=== PATIENT | male | born 1935 | race Caucasian/White ===

== ENCOUNTER 2016-08-01 11:35 | Inpatient (IN) | payer MEDICAID, MEDICARE ==
[2016-08-01 12:38] LABS: Eosinophils % (Auto) 0.9 % (0.0-4.3); Hematocrit 45.1 % (35.5-45.6); Mean Corpuscular HGB Conc 33 % (32-34); Mean Corpuscular Hemoglobin 30 pg (28-32); Mean Corpuscular Volume 89 fl (84-94); Platelet Count 211 K/mm3 (140-440); Red Blood Count 5.08 M/mm3 (3.65-5.03); Red Cell Distribution Width 14.6 % (13.2-15.2); White Blood Count 5.8 K/mm3 (4.5-11.0)
--- NOTE | 2016-08-01 12:48 | Emergency Department Report ---
ED Syncope HPI - General Chief Complaint: Syncope Stated Complaint: WEAKNESS Time Seen by Provider: 08/01/16 12:26 Source: family, RN notes reviewed Exam Limitations: language barrier - History of Present Illness Initial Comments: 81-year-old male presents to the emergency department via EMS after a witnessed syncopal episode at urgent care. History is obtained from a family member due to a language barrier. Per report, the patient was at urgent care for a routine follow-up. Family reports that the patient's blood pressure has been up and down over the past several days. EMS reports that the patient had a syncopal episode that was witnessed by the urgent care doctor. Family reports that at this time, the patient has no complaints. Family states that the patient has been feeling weak over the past several days. There are no other complaints. Timing/Prior Episodes: single episode today Precipitating Factors: Positive: unknown Context: sitting Loss of Consciousness: brief (seconds) Current Symptoms: back to normal, weakness - Related Data Allergies/Adverse Reactions: Allergies No Known Allergies Allergy (Unverified 08/01/16 12:06) Home Medications: Ambulatory Orders Aspirin EC [Aspirin Enteric Coated TAB] 81 mg PO QDAY 08/01/16 Fluticasone [Flonase] 1 spray NS QDAY 08/01/16 Lisinopril [Zestril TAB] 10 mg PO QDAY 08/01/16 Tamsulosin [Flomax] 0.4 mg PO QDAY 08/01/16 traMADol [Ultram 50 MG tab] 50 mg PO TID PRN 08/01/16 ED Review of Systems ROS: Stated complaint: WEAKNESS Other details as noted in HPI Comment: All other systems reviewed and negative Constitutional: weakness Cardiovascular: syncope ED Past Medical Hx - Past Medical History Previous Medical History?: Yes Hx Hypertension: Yes Additional medical history: Enlarged prostate - Surgical History Past Surgical History?: No - Family History Family history: no significant - Social History Smoking Status: Unknown if ever smoked - Medications Home Medications: Home Medications Medication Instructions Recorded Confirmed Last Taken Type Aspirin EC [Aspirin Enteric Coated 81 mg PO QDAY 08/01/16 08/01/16 Unknown History TAB] Fluticasone [Flonase] 1 spray NS QDAY 08/01/16 08/01/16 Unknown History Lisinopril [Zestril TAB] 10 mg PO QDAY 08/01/16 08/01/16 Unknown History Tamsulosin [Flomax] 0.4 mg PO QDAY 08/01/16 08/01/16 Unknown History traMADol [Ultram 50 MG tab] 50 mg PO TID PRN 08/01/16 08/01/16 Unknown History ED Physical Exam - General Limitations: Language Barrier General appearance: alert, in no apparent distress - Head Head exam: Present: atraumatic, normocephalic - Eye Eye exam: Present: normal appearance, PERRL, EOMI - ENT ENT exam: Present: normal exam, normal orophraynx, mucous membranes moist - Neck Neck exam: Present: normal inspection, full ROM. Absent: tenderness - Respiratory Respiratory exam: Present: normal lung sounds bilaterally. Absent: respiratory distress - Cardiovascular Cardiovascular Exam: Present: normal rhythm, bradycardia, normal heart sounds - GI/Abdominal GI/Abdominal exam: Present: soft, normal bowel sounds. Absent: distended, tenderness - Extremities Exam Extremities exam: Present: normal inspection, full ROM. Absent: tenderness - Back Exam Back exam: Present: normal inspection, full ROM. Absent: tenderness - Neurological Exam Neurological exam: Present: alert, oriented X3. Absent: motor sensory deficit - Skin Skin exam: Present: warm, dry, intact ED Course Vital Signs 08/01/16 11:40 Temperature 96.5 F L Pulse Rate 46 L Respiratory 16 Rate Blood Pressure 107/88 Blood Pressure 107/88 [Left] O2 Sat by Pulse 96 Oximetry ED Medical Decision Making - Lab Data Result diagrams: 08/01/16 12:15 08/01/16 12:15 - EKG Data -: EKG Interpreted by Me EKG shows normal: sinus rhythm, axis, intervals, QRS complexes, ST-T waves Rate: bradycardia - EKG Data When compared to previous EKG there are: previous EKG unavailable Interpretation: normal EKG - Medical Decision Making Laboratory results reviewed and discussed with the family at bedside. Hyponatremia and hypo-chloremia noted. Giving IV fluids. Patient is to be admitted by the hospitalist. - Differential Diagnosis syncope, hypotension, arrhythmia Critical care attestation.: If time is entered above; I have spent that time in minutes in the direct care of this critically ill patient, excluding procedure time. ED Disposition Clinical Impression: Syncope and collapse, Hyponatremia Disposition: OP ADMITTED IP TO THIS HOSP Is pt being admited?: Yes Condition: Stable Instructions: Syncope (ED) Referrals: PRIMARY CARE, [Primary Care Provider] - 3-5 Days Time of Disposition: 13:03
[2016-08-01 12:53] LABS: Alanine Aminotransferase 13 units/L (7-56); Albumin 3.5 g/dL (3.9-5); Albumin/Globulin Ratio 1.2 %; Alkaline Phosphatase 92 units/L (35-129); Anion Gap 15 mmol/L; BUN/Creatinine Ratio 21.66; Blood Urea Nitrogen 13 mg/dL (9-20); Calcium 8.5 mg/dL (8.4-10.2); Carbon Dioxide 24 mmol/L (22-30); Chloride 89.4 mmol/L (98-107); Glucose 120 mg/dL (75-100); Potassium 4.3 mmol/L (3.6-5.0); Sodium 124 mmol/L (137-145); Total Protein 6.4 g/dL (6.3-8.2)
--- NOTE | 2016-08-01 12:58 | Admit Criteria Form ---
Admission Criteria Documentation: SYNCOPE Clinical Indications for Admission to Inpatient Care ( Place 'X' for any and all applicable criteria): Admission is indicated for syncope and ANY ONE of the following (1)(2)(3)(4)(5) (6)(7) : [X ]I. Inpatient admission required rather than observation care (Also use Syncope: Observation Care Criteria as appropriate) because of ANY ONE of the following: [ ]a) Hemodynamic instability that is severe or persistent [ ]b) Cardiac arrhythmias of immediate concern identified or strongly suspected (eg, needs electrophysiologic study) [ ]c) Acute coronary syndrome identified (Also use Myocardial Infarction or Angina Criteria form ) [ ]d) Structural cardiac disorder (eg, aortic stenosis) suspected as cause that requires immediate correction [ ]e) Respiratory symptoms (eg, dyspnea, tachypnea) that are severe or persistent [ ]f) Neurologic signs or symptoms that are severe or persistent ( eg, stroke, seizures, altered mental status) [X ]g) Severe electrolyte abnormalities requiring inpatient care [ ]h) Supplemental oxygen or respiratory treatment for over 24 hrs that are performable only in acute inpatient setting [ ]i) IV fluid to replace significant ongoing (eg, for over 24 hrs ) losses (>3 L/m2 per day) [ ]j) Continuous intravenous infusion of anticoagulation, platelet inhibitor, vasoactive, or antiarrhythmic medication(15)(16) [ ]k) Pulmonary artery catheter monitoring [ ]l) Temporary pacemaker placement(17) [ ]m) Emergent cardioversion(18) [ ]n) Other conditions, treatment or monitoring requiring inpatient admission [ ]II. Suspicion of imminently dangerous cause (eg, rare causes like pericardial tamponade, pulmonary embolism) [ ]III. Syncope causing severe injury requiring hospitalization Extended stay beyond goal length of stay may be needed for(28) [ ]a) Dangerous arrhythmia(15)(23)(27)(29) [ ]b) Myocardial ischemia [ ]c) Seizure disorder [ ]d) Syncope-related injuries The original [employer] content created by [employer] has been revised. The portions of the content which have been revised are identified through the use of italic text or in bold, and [employer] has neither reviewed nor approved the modified material. All other unmodified content is copyright [employer]. Please see references footnoted in the original [facility] edition 2016 Admission Criteria Met: Yes
[2016-08-01] MEDS: NACL 0.9% 1000 ML 1,000 ML IV SCH (14:00)
[2016-08-01 14:27] LABS: Bilirubin,Urine NEG (Negative); Blood,Urine NEG (Negative); Ketones,Urine NEG (Negative); Leukocyte Esterase,Urine NEG (Negative); Mucus,Urine FEW /HPF; Nitrite,Urine NEG (Negative); Protein,Urine <15 mg/dL mg/dL (Negative); Urobilinogen,Urine < 2.0 mg/dL (<2.0)
--- NOTE | 2016-08-01 23:42 | Event Note ---
Date: 08/01/16 See H/p in reports Syncope and collapse Hyponatremia HTN BPH Bradycardia
[2016-08-02] MEDS ORDERED: ULTRAM PO PRN (01:31)
[2016-08-02] MEDS ORDERED: NITROSTAT SL PRN (01:31)
[2016-08-02] MEDS ORDERED: SODIUM CHLORIDE FLUSH SYRINGE 10 ML IV PRN (01:31)
[2016-08-02] MEDS: NACL 0.9% 1000 ML 1,000 ML IV SCH (01:57)
[2016-08-02 02:47] LABS: Creatine Kinase 39 units/L (55-170)
[2016-08-02] MEDS ORDERED: LEXISCAN IV ONE ×2 (09:40→09:46)
[2016-08-02] MEDS ORDERED: NACL 3% 500 ML IV ONE (10:00)
--- NOTE | 2016-08-02 10:50 | Cat Scan Report ---
CT scan of the contrast: History: Syncope. Findings: Ventricles are normal in size and midline in location. Evidence of cortical atrophy. No acute ischemia, hemorrhage or mass. No extra-axial fluid collection. Normal brainstem and cerebellum. Normal sinuses and mastoid air cells. Impression: Cortical atrophy. No acute intracranial abnormality.
--- NOTE | 2016-08-02 11:27 | History and Physical Report ---
CHIEF COMPLAINT: Passed out at urgent care. HISTORY OF PRESENT ILLNESS: An 81-year-old [place] male went to urgent care for a followup. His blood pressure was up and down over the past several weeks and he was being evaluated. The patient has passed out, as witnessed by the urgent care doctor and was sent here. No complaints. No chest pain. No diaphoresis. No focal deficits. The patient is back to normal. PAST MEDICAL HISTORY: Significant for hypertension, benign prostatic hypertrophy, and chronic pain. CURRENT MEDICATIONS: Aspirin 81 mg daily, Flonase 1 spray daily, lisinopril 10 mg p.o. daily, Flomax 0.4 mg p.o. daily, tramadol, Ultram 50 mg p.o. t.i.d. PAST SURGICAL HISTORY: None. FAMILY HISTORY: No significant family history. SOCIAL HISTORY: He does not smoke. No alcohol. No recreational drugs. REVIEW OF SYSTEMS: CONSTITUTIONAL: No weight loss. No weight gain. No fever. No chills. HEENT: No sore throat. No postnasal drip. No diplopia. No blurred vision. NECK: No neck pain. CARDIOVASCULAR: No chest pain. No palpitations. No diaphoresis. RESPIRATORY: No cough. No wheezing. GASTROINTESTINAL: No nausea. No vomiting. No diarrhea. GENITOURINARY: No dysuria. No flank pain. MUSCULOSKELETAL: No joint pains. No muscle pains. CENTRAL NERVOUS: Had syncopal episode first time. NEUROLOGIC: No focal deficits. SKIN: No rashes. A 14-point review of systems was done. PHYSICAL EXAMINATION: GENERAL: On examination, elderly male, cooperative during examination. VITAL SIGNS: Blood pressure is 133/50, not orthostatic, temperature is 98.2, pulse is 75, sats are 99, respiratory rate is 18. HEENT: Unremarkable. Pupils equal and reactive. NECK: Supple. No lymphadenopathy. No thyromegaly. CHEST: Clear to auscultation and percussion. Good air entry. CARDIOVASCULAR: S1, S2 heard. No gallop. No murmur. No rub. Apical impulse in left fifth intercostal space and midclavicular line. ABDOMEN: Soft and benign. No hepatosplenomegaly. No guarding. No rigidity. Hernial orifices are normal. EXTREMITIES: Good pedal pulses. No pedal edema. CENTRAL NERVOUS SYSTEM: Alert and oriented x 4. Nonfocal exam. SKIN: Normal. LABORATORY DATA: Significant for sodium of 124, BUN and creatinine of 13 and 0.6. Hemoglobin is 15, hematocrit is 45. Cardiac enzymes are negative. Albumin is 3.5, slightly low. Urine was negative. DIAGNOSTIC DATA: EKG shows sinus rhythm, normal axis, normal intervals. Normal QRS complexes, ST-T wave changes. Heart rate consistent with bradycardia, heart rate of 155. ASSESSMENT AND PLAN: 1. Syncope and collapse. Syncope workup. Probably hyponatremia may have contributed to his syncopal episode. We will correct the hyponatremia. The patient is not on diuretics. We will check urine lytes. Also 3% saline for 500 mL and recheck the sodium, hyponatremia, 3% saline 500 mL x 1. Check urine lytes. 2. Hypertension. Continue lisinopril. 3. Benign prostate hypertrophy. Continue Flomax. Flomax may be responsible for his syncope. 4. Chronic pain. Continue tramadol. 5. Deep venous thrombosis prophylaxis, Lovenox 40 mg subcutaneous daily. JOB# [id number] VSM/NTS
[2016-08-02] MEDS ORDERED: FLUARIX QUAD 2016-2017(36 MOS+) IM ONE (12:00)
[2016-08-02] MEDS ORDERED: PNEUMOVAX 23 IM ONE (12:00)
[2016-08-02 14:29] LABS: Anion Gap 18 mmol/L; Blood Urea Nitrogen 12 mg/dL (9-20); Calcium 8.4 mg/dL (8.4-10.2); Carbon Dioxide 23 mmol/L (22-30); Chloride 95.6 mmol/L (98-107); Glucose 104 mg/dL (75-100); Potassium 4.2 mmol/L (3.6-5.0); Sodium 132 mmol/L (137-145)
[2016-08-02] MEDS: ZESTRIL PO SCH (14:33)
[2016-08-02] MEDS: CLARITIN PO SCH (14:33)
[2016-08-02] MEDS: FLOMAX PO SCH (14:33)
[2016-08-02] MEDS: HALFPRIN EC PO SCH (14:33)
--- NOTE | 2016-08-02 15:49 | Progress Note ---
Assessment and Plan Syncope and collapse - likely vasovagal Hyponatremia - likely from dehydration Bradycardia, sinus HTN, benign BPH - cont iv fluid hydration - 2d echo showed EF 75% - CT head and carotid doppler unremarkable - will do PT eval - continue home meds - repeat BMP tomorrow - bank runner for bradycardia, HR now improved - if bradycardia persist will do cardiology consult Subjective Date of service: 08/02/16 Interval history: Patient seen and examined. Medical records and medication list reviewed. No acute event overnight noted by the RN. Patient denies any chest pain or difficulty breathing. Discussed plan of care at bedside with RN. Objective - Exam Narrative Exam: GENERAL: Elderly male lying on bed appeared to be in no discomfort. HEENT: Normocephalic. Atraumatic. No conjunctival congestion or icterus. Patient has moist mucous membranes. NECK: Supple. Trachea midline. CHEST/LUNGS: Clear to auscultated bilaterally, breathing nonlabored. No wheezes crackles or rhonchi. HEART/CARDIOVASCULAR: Regular in rate and rhythm. S1 and S2 positive. ABDOMEN: Abdomen is soft, nontender. Patient has normal bowel sounds. SKIN: There is no rash. Warm and dry. NEURO: No focal motor deficit. Follows command. MUSCULOSKELETAL: No joint effusion or tenderness. EXTRIMITY: No edema, no cyanosis or clubbing. PSYCH: Cooperative. - Constitutional Vitals: Vital Signs - 12hr 08/02/16 08/02/16 08/02/16 04:51 09:38 10:00 Temperature 98.2 F 97.5 F L Pulse Rate 53 L Pulse Rate [ 74 48 L Right Radial] Respiratory 18 20 Rate Blood Pressure 148/64 Blood Pressure 121/64 153/68 [Right Arm] O2 Sat by Pulse 98 99 Oximetry 08/02/16 08/02/16 08/02/16 10:04 10:05 10:06 Temperature Pulse Rate 86 86 83 Pulse Rate [ Right Radial] Respiratory Rate Blood Pressure 148/64 116/50 126/48 Blood Pressure [Right Arm] O2 Sat by Pulse Oximetry 08/02/16 08/02/16 08/02/16 10:07 10:08 14:00 Temperature Pulse Rate 82 86 Pulse Rate [ 75 Right Radial] Respiratory 18 Rate Blood Pressure 124/44 122/46 Blood Pressure [Right Arm] O2 Sat by Pulse 98 Oximetry 08/02/16 14:33 Temperature Pulse Rate 86 Pulse Rate [ Right Radial] Respiratory Rate Blood Pressure 122/46 Blood Pressure [Right Arm] O2 Sat by Pulse Oximetry - Labs CBC & Chem 7: 08/01/16 12:15 08/02/16 13:48 Labs: Abnormal lab results 08/02/16 08/02/16 Range/Units 01:41 13:48 Sodium 132 L D (137-145) mmol/L Chloride 95.6 L (98-107) mmol/L Creatinine 0.6 L (0.8-1.5) mg/dL Glucose 104 H (75-100) mg/dL Total Creatine Kinase 39 L (55-170) units/L
--- NOTE | 2016-08-03 05:02 | Treadmill Report ---
ORDERING PHYSICIAN: Dr. Mcclellan. INDICATION: Syncope. FINDINGS: There is no scintigraphic evidence of myocardial ischemia. The left ventricle is normal in size and systolic function. The left ventricular ejection fraction is measured at 79%. There is normal wall motion and wall thickening noted on gated imaging. CONCLUSION: Normal perfusion scan. JOB# [id number] JEROME/DULCE
--- NOTE | 2016-08-03 09:26 | Discharge Summary ---
Providers - Providers Date of Admission: 08/01/16 13:04 Date of discharge: 08/03/16 Attending physician: DARRIUS HERRERA 08/02/16 Consult to Cardiac Rehabilitation [CONS] Routine Reason For Exam: Phase I 08/02/16 15:48 Physical Therapy Evaluation and Treat [CONS] Routine Comment: Reason For Exam: placement Primary care physician: OPEN TENTER OPERATOR Hospitalization Condition: Stable Hospital course: 81 y/o male went to urgent care for HTN management, where he passed out and then sent to ER for further evaluation. He noted to have low sodium. He was placed on iv fluid, CT head and carotid doppler was normal. He was noted to be sinus bradycardia. He was further evaluated with stress test and 2d echo. He was also evaluated by PT and discharged home in stable condition. Diacharge diagnosis and management: Syncope and collapse - likely vasovagal from dehydration - CT head and carotid doppler unremarkable Hyponatremia - likely from dehydration - s/p iv fluid hydration Bradycardia, sinus -- 2d echo showed EF 75% -Stress test was nomal HTN, benign - continue current med (lisinopril) BPH - Medical management with flomax Disposition: DISCHARGED TO HOME OR SELFCARE Time spent for discharge: 32 minutes Core Measure Documentation - Palliative Care Palliative Care/ Comfort Measures: Not Applicable - Core Measures Any of the following diagnoses?: none Exam - Physical Exam Narrative exam: GENERAL: Elderly male lying on bed appeared to be in no discomfort. HEENT: Normocephalic. Atraumatic. No conjunctival congestion or icterus. Patient has moist mucous membranes. NECK: Supple. Trachea midline. CHEST/LUNGS: Clear to auscultated bilaterally, breathing nonlabored. No wheezes crackles or rhonchi. HEART/CARDIOVASCULAR: Regular in rate and rhythm. S1 and S2 positive. ABDOMEN: Abdomen is soft, nontender. Patient has normal bowel sounds. SKIN: There is no rash. Warm and dry. NEURO: No focal motor deficit. Follows command. MUSCULOSKELETAL: No joint effusion or tenderness. EXTRIMITY: No edema, no cyanosis or clubbing. PSYCH: Cooperative. - Constitutional Vitals: Temp Pulse Resp BP Pulse Ox 98.1 F 58 L 18 148/69 97 08/03/16 05:14 08/03/16 05:14 08/03/16 05:14 08/03/16 05:14 08/03/16 05:14 Plan Activity: fall precautions Weight Bearing Status: Non-Weight Bearing Diet: low fat Durable Medical Equipment Needed Upon Discharge: Cane Follow up with: PRIMARY CARE, [Primary Care Provider] - 3-5 Days
[2016-08-03] MEDS: HALFPRIN EC PO SCH (10:29)
[2016-08-03] MEDS: CLARITIN PO SCH (10:29)
[2016-08-03] MEDS: ZESTRIL PO SCH (10:29)
[2016-08-03] MEDS: FLOMAX PO SCH (10:29)
[2016-08-03 12:56] VITALS: BP 186/77
[2016-08-03 13:11] LABS: Blood Urea Nitrogen 15 mg/dL (9-20); Calcium 8.7 mg/dL (8.4-10.2); Carbon Dioxide 23 mmol/L (22-30); Glucose 79 mg/dL (75-100); Sodium 136 mmol/L (137-145)
[2016-08-03 14:13] LABS: Anion Gap 23 mmol/L; Potassium 4.7 mmol/L (3.6-5.0)
== END 2016-08-03 15:00 | disposition home or self-care (01) | DRG 641 ==
LOC: ED 11:35 → 4A 13:04
PROVIDERS: ADMIT Internal Medicine; ATTEND Internal Medicine
DX: E87.1 Hypo-osmolality and hyponatremia (principal); R55 Syncope and collapse; N40.0 Benign prostatic hyperplasia without lower urinary tract symptoms; I10 Essential (primary) hypertension; G89.29 Other chronic pain; R00.1 Bradycardia, unspecified; Z79.82 Long term (current) use of aspirin; Z79.899 Other long term (current) drug therapy
CPT/HCPCS: 36415; 70450; 78452; 80048; 80053; 81001; 82140; 82550; 82553; 82962; 83735; 84443; 84484; 85025; 93005; 93010; 93017; 93306; 93880; A9502; J2785; J7030

== ENCOUNTER 2017-02-19 23:45 | Emergency (ER) | payer MEDICARE ==
[2017-02-20 01:06] LABS: Basophils % (Auto) 0.6 % (0.0-1.8); Eosinophils % (Auto) 0.6 % (0.0-4.3); Hematocrit 47.5 % (35.5-45.6); Hemoglobin 15.9 gm/dl (11.8-15.2); Mean Corpuscular HGB Conc 33 % (32-34); Mean Corpuscular Hemoglobin 30 pg (28-32); Mean Corpuscular Volume 91 fl (84-94); Platelet Count 200 K/mm3 (140-440); Red Blood Count 5.24 M/mm3 (3.65-5.03); White Blood Count 11.2 K/mm3 (4.5-11.0)
[2017-02-20 01:28] LABS: Anion Gap 20 mmol/L; BUN/Creatinine Ratio 28; Blood Urea Nitrogen 14 mg/dL (9-20); Calcium 8.7 mg/dL (8.4-10.2); Carbon Dioxide 23 mmol/L (22-30); Chloride 98.4 mmol/L (98-107); Glucose 93 mg/dL (75-100); Potassium 4.8 mmol/L (3.6-5.0); Sodium 137 mmol/L (137-145)
--- NOTE | 2017-02-20 02:29 | Emergency Department Report ---
ED Shortness of Breath HPI - General Chief Complaint: Dyspnea/Respdistress Stated Complaint: GENERAL ILLNESS Time Seen by Provider: 02/20/17 02:28 Source: EMS, per diem interpreter Mode of arrival: Stretcher Limitations: Language Barrier - History of Present Illness Initial Comments: Patient complains of shortness of breath and feeling funny sensation in the throat. Patient is from [place], and cannot speak [place]. He is a poor historian. There is a gentleman at his bedside who is his caregiver who interprets for him. MD Complaint: shortness of breath -: Gradual Severity: moderate Pain Scale: 5 Consistency: constant Improves With: nothing Worsens With: nothing Associated Symptoms: denies other symptoms Treatments Prior to Arrival: none - Related Data Previous Rx's Medication Instructions Recorded Last Taken Type Aspirin EC [Aspirin Enteric Coated 81 mg PO QDAY #30 tablet 09/21/16 Unknown Rx TAB] Fluticasone [Flonase] 1 spray NS QDAY #1 bottle 09/21/16 Unknown Rx Levofloxacin [Levaquin] 250 mg PO QDAY #5 tablet 09/21/16 Unknown Rx Lisinopril [Zestril TAB] 10 mg PO QDAY #30 tablet 09/21/16 Unknown Rx Loratadine [Claritin] 10 mg PO DAILY #10 tablet 09/21/16 Unknown Rx Nitroglycerin [Nitrostat] 0.4 mg SL Q5M PRN #20 tablet 09/21/16 Unknown Rx Tamsulosin [Flomax] 0.4 mg PO QDAY #30 capsule 09/21/16 Unknown Rx traMADol [Ultram 50 MG tab] 50 mg PO TID PRN #20 tablet 09/21/16 Unknown Rx Ipratropium/Albuter (Nf) 2 puff IH QID #1 inha 02/20/17 Unknown Rx [Combivent (Nf)] Levofloxacin [Levaquin] 750 mg PO QDAY #7 tablet 02/20/17 Unknown Rx Prednisone 10 mg PO BID #8 tab.ds.pk 02/20/17 Unknown Rx Allergies Allergy/AdvReac Type Severity Reaction Status Date / Time No Known Allergies Allergy Unverified 08/01/16 12:06 ED Review of Systems ROS: Stated complaint: GENERAL ILLNESS Other details as noted in HPI Comment: All other systems reviewed and negative Constitutional: denies: chills, fever Eyes: denies: eye pain, eye discharge, vision change ENT: denies: ear pain, throat pain Respiratory: cough, shortness of breath. denies: wheezing Cardiovascular: denies: chest pain, palpitations Endocrine: no symptoms reported Gastrointestinal: denies: abdominal pain, nausea, diarrhea Genitourinary: denies: urgency, dysuria Musculoskeletal: denies: back pain, joint swelling, arthralgia Skin: denies: rash, lesions Neurological: denies: headache, weakness, paresthesias Psychiatric: denies: anxiety, depression Hematological/Lymphatic: denies: easy bleeding, easy bruising ED Past Medical Hx - Past Medical History Previous Medical History?: Yes Hx Hypertension: Yes Hx Heart Attack/AMI: No Hx Congestive Heart Failure: No Additional medical history: Enlarged prostate - Surgical History Hx Coronary Stent: No Hx Pacemaker: No Hx Internal Defibrillator: No - Social History Smoking Status: Never Smoker Substance Use Type: None - Medications Home Medications: Home Medications Medication Instructions Recorded Confirmed Last Taken Type Aspirin EC [Aspirin Enteric Coated 81 mg PO QDAY #30 tablet 09/21/16 Unknown Rx TAB] Fluticasone [Flonase] 1 spray NS QDAY #1 bottle 09/21/16 Unknown Rx Levofloxacin [Levaquin] 250 mg PO QDAY #5 tablet 09/21/16 Unknown Rx Lisinopril [Zestril TAB] 10 mg PO QDAY #30 tablet 09/21/16 Unknown Rx Loratadine [Claritin] 10 mg PO DAILY #10 tablet 09/21/16 Unknown Rx Nitroglycerin [Nitrostat] 0.4 mg SL Q5M PRN #20 tablet 09/21/16 Unknown Rx Tamsulosin [Flomax] 0.4 mg PO QDAY #30 capsule 09/21/16 Unknown Rx traMADol [Ultram 50 MG tab] 50 mg PO TID PRN #20 tablet 09/21/16 Unknown Rx Ipratropium/Albuter (Nf) 2 puff IH QID #1 inha 02/20/17 Unknown Rx [Combivent (Nf)] Levofloxacin [Levaquin] 750 mg PO QDAY #7 tablet 02/20/17 Unknown Rx Prednisone 10 mg PO BID #8 tab.ds.pk 02/20/17 Unknown Rx ED Physical Exam - General Limitations: Language Barrier General appearance: alert, in no apparent distress - Head Head exam: Present: atraumatic, normocephalic - Eye Eye exam: Present: normal appearance - ENT ENT exam: Present: mucous membranes moist - Neck Neck exam: Present: normal inspection - Respiratory Respiratory exam: Present: normal lung sounds bilaterally. Absent: respiratory distress - Cardiovascular Cardiovascular Exam: Present: regular rate, normal rhythm. Absent: systolic murmur, diastolic murmur, rubs, gallop - GI/Abdominal GI/Abdominal exam: Present: soft, normal bowel sounds - Rectal Rectal exam: Present: deferred - Extremities Exam Extremities exam: Present: normal inspection - Back Exam Back exam: Present: normal inspection - Neurological Exam Neurological exam: Present: alert, oriented X3 - Psychiatric Psychiatric exam: Present: normal affect, normal mood - Skin Skin exam: Present: warm, dry, intact, normal color. Absent: rash ED Course Vital Signs 02/20/17 02/20/17 02/20/17 00:16 00:22 01:00 Temperature 98.4 F 98.4 F Pulse Rate 91 H 91 H 92 H Pulse Rate [ Anterior Bilateral Throughout] Respiratory 13 13 14 Rate Respiratory Rate [Anterior Bilateral Throughout] Blood Pressure 178/76 142/76 Blood Pressure 178/76 [Left] O2 Sat by Pulse 98 98 95 Oximetry 02/20/17 02/20/17 02/20/17 02:00 04:00 05:00 Temperature Pulse Rate 89 76 76 Pulse Rate [ Anterior Bilateral Throughout] Respiratory 11 L 12 14 Rate Respiratory Rate [Anterior Bilateral Throughout] Blood Pressure 154/77 159/70 151/70 Blood Pressure [Left] O2 Sat by Pulse 93 93 95 Oximetry 02/20/17 02/20/17 02/20/17 06:00 07:47 08:36 Temperature 98.4 F Pulse Rate 82 82 Pulse Rate [ 80 Anterior Bilateral Throughout] Respiratory 14 14 Rate Respiratory 17 Rate [Anterior Bilateral Throughout] Blood Pressure 144/67 Blood Pressure 142/62 [Left] O2 Sat by Pulse 98 99 Oximetry ED Medical Decision Making - Lab Data Result diagrams: 02/20/17 00:48 02/20/17 02:47 - EKG Data -: EKG Interpreted by Me EKG shows normal: sinus rhythm, intervals (physical on block) Rate: normal (95) - EKG Data Interpretation: other (no STEMI) - Medical Decision Making Patient is feeling much better after receiving treatment in the ED. Lungs to go home and he doesn't want to be admitted. We'll discharge him home on by mouth antibiotics to follow up with his primary doctor on Friday. - Differential Diagnosis COPD, pneumonia. Critical care attestation.: If time is entered above; I have spent that time in minutes in the direct care of this critically ill patient, excluding procedure time. ED Disposition Clinical Impression: Bronchitis COPD (chronic obstructive pulmonary disease) Qualifiers: COPD type: unspecified COPD Qualified Code(s): J44.9 - Chronic obstructive pulmonary disease, unspecified Emphysema Qualifiers: Emphysema type: unspecified Qualified Code(s): J43.9 - Emphysema, unspecified Disposition: TO HOME OR SELFCARE Is pt being admited?: No Does the pt Need Aspirin: No Condition: Stable Instructions: Chronic Obstructive Pulmonary Disease (ED), Chronic Bronchitis ( ED), Acute Bronchitis (ED) Additional Instructions: Please follow up with your primary care doctor on Friday morning. Return to the emergency room if your condition worsens. Prescriptions: Ipratropium/Albuter (Nf) [Combivent (Nf)] 2 puff IH QID #1 inha Levofloxacin [Levaquin] 750 mg PO QDAY #7 tablet Prednisone 10 mg PO BID #8 tab.ds.pk Referrals: PRIMARY CARE, [Primary Care Provider] - 3-5 Days
[2017-02-20 03:35] LABS: Alanine Aminotransferase 10 units/L (7-56); Albumin 3.8 g/dL (3.9-5); Albumin/Globulin Ratio 1.5 %; Alkaline Phosphatase 67 units/L (35-129); Anion Gap 19 mmol/L; BUN/Creatinine Ratio 26; Blood Urea Nitrogen 13 mg/dL (9-20); Calcium 8.6 mg/dL (8.4-10.2); Carbon Dioxide 24 mmol/L (22-30); Chloride 99.5 mmol/L (98-107); Creatine Kinase 48 units/L (55-170); Glucose 95 mg/dL (75-100); Potassium 4.3 mmol/L (3.6-5.0); Sodium 138 mmol/L (137-145); Total Protein 6.4 g/dL (6.3-8.2)
[2017-02-20 04:00] LABS: INR 0.92 (0.87-1.13)
[2017-02-20 04:01] LABS: Partial Thromboplastin Time 30.2 Sec. (24.2-36.6)
--- NOTE | 2017-02-20 07:54 | Cat Scan Report ---
FINAL REPORT EXAM: CT NECK W CON HISTORY: sob and feeling of neck discomfort TECHNIQUE: Routine axial imaging was obtained of the soft tissues of the neck extending from skull base to the thoracic inlet following the intravenous injection of 100 cc of Omnipaque 300. sagittal and coronal reconstructions were reviewed. FINDINGS: The airway appears normal. The parotid and submandibular glands appear normal. The vascular structures reveal right-sided carotid artery calcifications. The retropharyngeal space appears normal. The vocal cords appear normal. The thyroid gland reveals several small low-attenuation foci of measure up to 5 millimeters in diameter. The lung apices reveal extensive pleural parenchymal scarring and emphysematous changes. Images along the skullbase show 14.7 millimeter polyp in the left maxillary sinus. The remaining sinuses are clear. The mastoid air cells are well pneumatized. The skeletal structures reveal arthritic changes in the cervical spine. IMPRESSION: No evidence of any acute inflammatory or neoplastic process in the neck. Several low-attenuation foci in the thyroid gland involving both lobes. Further evaluation recommended with outpatient thyroid sonography. Polyp in the left maxillary sinus. Extensive emphysematous changes in both lung apices with pleural parenchymal apical scarring.
--- NOTE | 2017-02-20 08:01 | XRay Report ---
X-RAY SOFT TISSUE NECK TWO VIEWS: 02/20/17 02:29:00 CLINICAL: Difficulty breathing. FINDINGS: Normal airway and soft tissues. No mass. No soft tissue air or mediastinal air. Severe scoliosis and extensive degenerative change in the cervical spine. Large anterior osteophytes at multiple levels and extensive facet joint sclerosis at multiple levels. No fracture. IMPRESSION: Normal soft tissues and airway. Scoliosis and extensive degenerative change in the cervical spine.
[2017-02-20] MEDS ORDERED: ROCEPHIN/NS 1 GM/50 ML 1 GM/50 ML BAG IV ONE (08:02)
[2017-02-20] MEDS ORDERED: DUONEB *Not for PRN Use IH ONE (08:02)
--- NOTE | 2017-02-20 08:03 | XRay Report ---
AP CHEST :02/20/17 CLINICAL: Shortness of breath. COMPARISON:09/05/16 FINDINGS: Stable bilateral apical pleural thickening with retraction of the noemi superiorly. Stable bibasal reticular interstitial opacities. No air space disease or pleural effusion. The heart is normal size. Large central pulmonary arteries but otherwise normal pulmonary vasculature. The bones and soft tissues are unremarkable. IMPRESSION: No acute cardiopulmonary process.Chronic bilateral apical pleural scarring with retraction of the noemi consistent with old granulomatous disease. Chronic bilateral lower lobe interstitial fibrotic changes.
[2017-02-20] MEDS ORDERED: cefTRIAXone 1 GM in NACL 0.9% 20 ML IV ONE (08:15)
--- NOTE | 2017-02-20 08:39 | Cat Scan Report ---
FINAL REPORT PROCEDURE: CT CHEST W CON TECHNIQUE: Consent was obtained. IV contrast was administered and axial sections and post processed reformatted and maximum intensity projection images were viewed through the chest. HISTORY: sob and feeling of neck discomfort COMPARISON: None FINDINGS: The heart is normal in size. Trace pericardial fluid is present as well as bilateral pleural fluid. There is no hilar or mediastinal lymphadenopathy. There is no thoracic or included abdominal aortic aneurysm or dissection. No filling defect of the pulmonary arteries to suggest pulmonary embolism is seen. The proximal great vessels enhance normally. Subtle right lobe thyroid nodule is present 4 millimeters. Pulmonary emphysema most conspicuously bullous of the right lung apex posteriorly is present. Biapical pleural thickening is present. 2.8 millimeter subpleural left upper lobe granuloma seen on image 176 on axials is noted. Dependent subsegmental atelectasis is present. Nodular density of the right lung base laterally not definitely calcified granulomas are seen on axial lung windows 179 and 180 anteriorly. The largest of these is 3.6 millimeters. Right worse than left apical bronchiectasis is present. There is no acute osseous abnormality. Views of the upper abdomen demonstrate left renal cysts the largest of which is 1.8 x 2.1 centimeters. IMPRESSION: Pulmonary emphysema. Upper lobe bronchiectasis. Tiny nodular densities likely nodular scars of the right lung as well as calcified granuloma of the left lung. Follow-up exam in 6 months is recommended. Trace pericardial and bilateral pleural effusions. Left renal cysts. Subtle right lobe thyroid nodule. Correlate with ultrasound.
[2017-02-20 10:56] VITALS: BP 151/80
== END 2017-02-20 11:01 | disposition home or self-care (01) ==
LOC: ED 23:45
DX: J44.9 Chronic obstructive pulmonary disease, unspecified (principal); J43.9 Emphysema, unspecified; I10 Essential (primary) hypertension
CPT/HCPCS: 36415; 70360; 70491; 71010; 71260; 80048; 80053; 82550; 83880; 84484; 85025; 85610; 85730; 93005; 93010; 94640; 96365; 96375; 99285; J0696; J2930; Q9967

== ENCOUNTER 2018-06-01 10:04 | Outpatient (CLI) | payer MEDICARE ==
--- NOTE | 2018-06-01 10:53 | XRay Report ---
SKULL X-RAY, 4 VIEWS: History: Head and neck trauma. Multiple views demonstrate normal calvaria. No abnormal intracranial calcifications are noted and the visualized bony structures are normal. IMPRESSION: Unremarkable skull series. COMMENT: This report should not preclude CT if symptoms suggest an intracranial abnormality.
--- NOTE | 2018-06-01 10:55 | XRay Report ---
CERVICAL SPINE, 5 views: History: Head and neck trauma. Mild osteopenia is suspected. Views of the cervical spine demonstrate normal bony alignment, vertebral height and interspace distances. Mild degenerative disc disease and facet arthropathy are identified at all levels. Oblique views show patent foramina and normal apophyseal joint alignment. The prevertebral soft tissues are not thickened. IMPRESSION: Osteopenia. Mild multilevel cervical spondylosis. No acute process is identified. If further evaluation is needed, CT cervical spine could be obtained.
== END 2018-06-01 10:05 | disposition home or self-care (01) ==
LOC: XRAY 10:04
PROVIDERS: ATTEND Family Medicine
DX: M47.812 Spondylosis without myelopathy or radiculopathy, cervical region (principal); M85.88 Other specified disorders of bone density and structure, other site; M50.30 Other cervical disc degeneration, unspecified cervical region; I10 Essential (primary) hypertension
CPT/HCPCS: 70260; 72050

== ENCOUNTER 2018-06-29 08:54 | Outpatient (CLI) | payer MEDICARE ==
--- NOTE | 2018-06-29 13:34 | Mammography Report ---
BONE DEXA:06/29/18 08:54:00 CLINICAL: 83-year-old male with osteoporosis. No comparison. TECHNIQUE: Two site bone DEXA performed on an Hologic scanner. FINDINGS: The average BMD of the lumbar spine L1-L4 is 0.683g/cm squared with a T-score of -3.7. The average BMD of the left hip is 0.574g/cm squared with a T-score of -3.0. Note: Z scores are not calculated if age =or> 80 years. IMPRESSION: WHO classification: Osteoporosis with high fracture risk based on both lumbar spine and left hip measurements. RECOMMENDATION: Clinical correlation and routine screening. DEFINITIONS: BMD = Bone Mineral Density T-score = BMD related to mean peak bone mass of young adult (mean expressed in Standard Deviation) Z-score = Age matched BMD expressed in SD World Health Organization (WHO) Diagnostic Criteria Normal T-score > -1 SD Osteopenia T-score between -1 and -2.4 SD Osteoporosis T-score -2.5 SD or below NOTE: BMD is not the only risk factor for fracture. One should also consider factors such as the patient's age, risk of falling, previous osteoporotic fracture, family history of osteoporotic fractures, current smoker, and low body weight. Z-scores are not calculated if >80 years of age.
== END 2018-06-29 08:55 | disposition home or self-care (01) ==
LOC: MAMMO 08:54
PROVIDERS: ATTEND Family Medicine
DX: M81.0 Age-related osteoporosis without current pathological fracture (principal); I10 Essential (primary) hypertension
CPT/HCPCS: 77080

== ENCOUNTER 2021-10-19 19:55 | Emergency (ER) | payer MEDICARE ==
[2021-10-19 20:52] VITALS: BP 168/72
--- NOTE | 2021-10-19 21:02 | Emergency Department Report ---
ED Male HPI - General Chief complaint: Urogenital-Male Stated complaint: UNABLE TO URINATE Time Seen by Provider: 10/19/21 20:59 Source: patient, family Mode of arrival: Stretcher Limitations: Language Barrier - History of Present Illness Initial comments: Patient is a 86-year-old male that presents emergency room for urinary retention.. Patient has had difficulty urinating since this morning. Patient has a history of urinary retention. Patient has been only dribbling a small amount. Patient has bladder distention noted. Patient's family at bedside to translate. Patient unable to speak Scottish. Patient denies fever and chills. Patient denies recent travel. Patient denies recent international travel. Patient denies exposure to the novel coronavirus. Patient denies sick contacts. Patient denies fever and chills. Patient denies cough. Patient denies diarrhea. Patient denies coming in contact with anybody with symptoms of the novel coronavirus. -: Gradual Location: abdomen Severity: mild Severity scale (0 -10): 3 Quality: aching Consistency: constant Improves with: urination, rest Worsens with: movement urinary retention. denies: discharge, swelling, mass, rash, blood in urine, dysuria, fever, nausea/vomiting, incontinence - Related Data Previous Rx's Medication Instructions Recorded Last Taken Type Aspirin EC [Halfprin EC] 81 mg PO QDAY #30 tablet 09/21/16 Unknown Rx Fluticasone [Flonase] 1 spray NS QDAY #1 bottle 09/21/16 Unknown Rx Loratadine (Nf) [Claritin (Nf)] 10 mg PO DAILY #10 tablet 09/21/16 Unknown Rx Nitroglycerin [Nitrostat] 0.4 mg SL Q5M PRN #20 tablet 09/21/16 Unknown Rx Tamsulosin [Flomax] 0.4 mg PO QDAY #30 capsule 09/21/16 Unknown Rx levoFLOXacin [Levaquin] 250 mg PO QDAY #5 tablet 09/21/16 Unknown Rx lisinopriL [Zestril TAB] 10 mg PO QDAY #30 tablet 09/21/16 Unknown Rx traMADoL [Ultram 50 MG tab] 50 mg PO TID PRN #20 tablet 09/21/16 Unknown Rx Ipratropium/Albuter (Nf) 2 puff IH QID #1 inha 02/20/17 Unknown Rx [Combivent (Nf)] levoFLOXacin [Levaquin] 750 mg PO QDAY #7 tablet 02/20/17 Unknown Rx predniSONE [predniSONE 10mg (21 10 mg PO BID #8 tab.ds.pk 02/20/17 Unknown Rx tabs)] Allergies Allergy/AdvReac Type Severity Reaction Status Date / Time No Known Allergies Allergy Unverified 08/01/16 12:06 ED Review of Systems ROS: Stated complaint: UNABLE TO URINATE Other details as noted in HPI Constitutional: denies: chills, fever Eyes: denies: eye pain, eye discharge, vision change ENT: denies: ear pain, throat pain Respiratory: denies: cough, shortness of breath, wheezing Cardiovascular: denies: chest pain, palpitations Endocrine: no symptoms reported Gastrointestinal: as per HPI, abdominal pain. denies: nausea, diarrhea Genitourinary: as per HPI. denies: urgency, dysuria Musculoskeletal: denies: back pain, joint swelling, arthralgia Skin: denies: rash, lesions Neurological: denies: headache, weakness, paresthesias Psychiatric: denies: anxiety, depression Hematological/Lymphatic: denies: easy bleeding, easy bruising ED Past Medical Hx - Past Medical History Previous Medical History?: Yes Hx Hypertension: Yes Hx Heart Attack/AMI: No Hx Congestive Heart Failure: No Hx Diabetes: Yes Additional medical history: Enlarged prostate - Surgical History Past Surgical History?: No Hx Coronary Stent: No Hx Pacemaker: No Hx Internal Defibrillator: No - Family History Family history: no significant - Social History Smoking Status: Never Smoker Substance Use Type: None - Medications Home Medications: Home Medications Medication Instructions Recorded Confirmed Last Taken Type Aspirin EC [Halfprin EC] 81 mg PO QDAY #30 tablet 09/21/16 Unknown Rx Fluticasone [Flonase] 1 spray NS QDAY #1 bottle 09/21/16 Unknown Rx Loratadine (Nf) [Claritin (Nf)] 10 mg PO DAILY #10 tablet 09/21/16 Unknown Rx Nitroglycerin [Nitrostat] 0.4 mg SL Q5M PRN #20 tablet 09/21/16 Unknown Rx Tamsulosin [Flomax] 0.4 mg PO QDAY #30 capsule 09/21/16 Unknown Rx levoFLOXacin [Levaquin] 250 mg PO QDAY #5 tablet 09/21/16 Unknown Rx lisinopriL [Zestril TAB] 10 mg PO QDAY #30 tablet 09/21/16 Unknown Rx traMADoL [Ultram 50 MG tab] 50 mg PO TID PRN #20 tablet 09/21/16 Unknown Rx Ipratropium/Albuter (Nf) 2 puff IH QID #1 inha 02/20/17 Unknown Rx [Combivent (Nf)] levoFLOXacin [Levaquin] 750 mg PO QDAY #7 tablet 02/20/17 Unknown Rx predniSONE [predniSONE 10mg (21 10 mg PO BID #8 tab.ds.pk 02/20/17 Unknown Rx tabs)] ED Physical Exam - General Limitations: Language Barrier General appearance: alert, in no apparent distress - Head Head exam: Present: atraumatic, normocephalic - Eye Eye exam: Present: normal appearance - ENT ENT exam: Present: mucous membranes moist - Neck Neck exam: Present: normal inspection - Respiratory Respiratory exam: Present: normal lung sounds bilaterally. Absent: respiratory distress - Cardiovascular Cardiovascular Exam: Present: regular rate, normal rhythm. Absent: systolic murmur, diastolic murmur, rubs, gallop - GI/Abdominal GI/Abdominal exam: Present: soft, normal bowel sounds - Rectal Rectal exam: Present: deferred - Extremities Exam Extremities exam: Present: normal inspection - Back Exam Back exam: Present: normal inspection - Neurological Exam Neurological exam: Present: alert, oriented X3 - Psychiatric Psychiatric exam: Present: normal affect, normal mood - Skin Skin exam: Present: warm, dry, intact, normal color. Absent: rash ED Course Vital Signs 10/19/21 19:55 Temperature 98 F Pulse Rate 90 Respiratory 18 Rate Blood Pressure 168/72 O2 Sat by Pulse 100 Oximetry - Reevaluation(s) Reevaluation #1: Nurse instructed to place Dunne. 10/19/21 21:02 Reevaluation #2: Patient's lower abdominal distention is resolved. Patient dates he is feeling much better. Patient's Dunne put out 400 mL. 10/19/21 21:25 Reevaluation #3: I discussed all results and clinical findings with patient. I discussed plan of care with patient. Patient agrees with plan of care. Patient is stable for discharge. Patient will be discharged home. Patient given discharge instructions. Patient voiced understanding of discharge instructions. 10/19/21 23:17 ED Medical Decision Making - Lab Data Result diagrams: 10/19/21 21:27 10/19/21 21:27 - Medical Decision Making Patient is a 86-year-old male that presents emergency room with complaints of urinary tension lower abdominal pain. Patient had a Dunne placed after initial evaluation. Patient's symptoms resolved shortly after Dunne being placed. Patient drained 400 mils immediately of yellow urine. Patient had labs done to include a UA. Patient's labs were essentially unremarkable except for dehydration. Patient not have a UTI on the UA. Patient is stable for discharge. Patient will be discharged home with Dunne. Patient does not require emergency medical services. Patient not require inpatient services. Patient given discharge instructions through family member translating. I discussed all results and clinical findings with patient. I discussed plan of care with patient. Patient agrees with plan of care. Patient is stable for discharge. Patient will be discharged home. Patient given discharge instructions. Patient voiced understanding of discharge instructions. - Differential Diagnosis Urinary retention, abdominal pain, Critical care attestation.: If time is entered above; I have spent that time in minutes in the direct care of this critically ill patient, excluding procedure time. ED Disposition Clinical Impression: Lower abdominal pain, Urinary retention, Dehydration Disposition: 01 HOME / SELF CARE / HOMELESS Is pt being admited?: No Does the pt Need Aspirin: No Condition: Stable Instructions: Abdominal Pain, Adult, Indwelling Urinary Catheter Care, Adult, [id number], Acute Urinary Retention, Male, [id number] Additional Instructions: Patient to follow-up with primary care in 2 to 3 days. Patient to follow-up with urologist in 2 to 3 days. Patient to rest. Patient to increase water. Patient to avoid strenuous exercise or heavy lifting until cleared by educational aide and primary care.. Patient to take Tylenol or ibuprofen as needed for pain. Patient to return to the ER if condition worsens, changes or new symptoms arise. Patient to leave Dunne until removed by urologist. Referrals: LEENA SOLIS MD [Staff Physician] - 2-3 Days DOTTIE SANCHEZ MD [Staff Physician] - 2-3 Days Time of Disposition: 23:18
[2021-10-19 22:02] LABS: Mucus,Urine FEW /HPF
[2021-10-19 22:09] LABS: Alanine Aminotransferase 8 units/L (7-56); Albumin 3.5 g/dL (3.9-5); BUN/Creatinine Ratio 41; Blood Urea Nitrogen 33 mg/dL (9-20); Calcium 8.9 mg/dL (8.4-10.2); Hemolysis Index 15
[2021-10-19 22:17] LABS: Bilirubin,Urine Negative (Negative); Blood,Urine Trace (Negative); Color,Urine Yellow (Yellow); Urobilinogen,Urine < 2.0 mg/dL (<2.0)
[2021-10-19 22:33] LABS: Hematocrit 42.6 % (35.5-45.6); Hemoglobin 14.6 gm/dl (11.8-15.2); Mean Corpuscular HGB Conc 34 % (32-34); Mean Corpuscular Volume 87 fl (84-94); Platelet Count 176 K/mm3 (140-440); Red Blood Count 4.91 M/mm3 (3.65-5.03); Red Cell Distribution Width 14.1 % (13.2-15.2)
== END 2021-10-20 01:06 | disposition home or self-care (01) ==
LOC: ED 19:55
DX: R10.30 Lower abdominal pain, unspecified (principal); R33.9 Retention of urine, unspecified; E86.0 Dehydration; I10 Essential (primary) hypertension; E11.9 Type 2 diabetes mellitus without complications; Z79.899 Other long term (current) drug therapy
CPT/HCPCS: 36415; 51702; 80053; 81001; 85027; 99283

== ENCOUNTER 2021-11-15 14:54 | Emergency (ER) | payer MEDICARE ==
[2021-11-15 15:13] VITALS: BP 123/66
--- NOTE | 2021-11-15 17:36 | Emergency Department Report ---
ED Male HPI - General Chief complaint: Urogenital-Male Stated complaint: ? CHANGE CATHETER Time Seen by Provider: 11/15/21 17:32 Source: family Mode of arrival: Ambulatory Limitations: Language Barrier - History of Present Illness Initial comments: 86-year-old male presents to the emergency department for evaluation of leaking Dunne catheter. His family member states that patient had a Dunne placed here 1 month ago but has not been able to follow-up with urology. Family was states that patient woke up this morning with leaking from Dunne catheter bag. Patient has not complained of any abdominal pain, dysuria, fever, chills, or any other symptoms. MD Complaint: other (Dunne catheter leaking) -: This morning Severity scale (0 -10): 0 denies: discharge, swelling, mass, rash, urinary retention, blood in urine, fever, nausea/vomiting, incontinence - Related Data Previous Rx's Medication Instructions Recorded Last Taken Type Aspirin EC [Halfprin EC] 81 mg PO QDAY #30 tablet 09/21/16 Unknown Rx Fluticasone [Flonase] 1 spray NS QDAY #1 bottle 09/21/16 Unknown Rx Loratadine (Nf) [Claritin (Nf)] 10 mg PO DAILY #10 tablet 09/21/16 Unknown Rx Nitroglycerin [Nitrostat] 0.4 mg SL Q5M PRN #20 tablet 09/21/16 Unknown Rx Tamsulosin [Flomax] 0.4 mg PO QDAY #30 capsule 09/21/16 Unknown Rx levoFLOXacin [Levaquin] 250 mg PO QDAY #5 tablet 09/21/16 Unknown Rx lisinopriL [Zestril TAB] 10 mg PO QDAY #30 tablet 09/21/16 Unknown Rx traMADoL [Ultram 50 MG tab] 50 mg PO TID PRN #20 tablet 09/21/16 Unknown Rx Ipratropium/Albuter (Nf) 2 puff IH QID #1 inha 02/20/17 Unknown Rx [Combivent (Nf)] levoFLOXacin [Levaquin] 750 mg PO QDAY #7 tablet 02/20/17 Unknown Rx predniSONE [predniSONE 10mg (21 10 mg PO BID #8 tab.ds.pk 02/20/17 Unknown Rx tabs)] Allergies Allergy/AdvReac Type Severity Reaction Status Date / Time No Known Allergies Allergy Verified 11/15/21 15:14 ED Review of Systems ROS: Stated complaint: ? CHANGE CATHETER Other details as noted in HPI Comment: All other systems reviewed and negative Constitutional: denies: chills, fever Respiratory: denies: shortness of breath Cardiovascular: denies: chest pain, palpitations Gastrointestinal: denies: abdominal pain, nausea, vomiting Genitourinary: denies: urgency, dysuria, frequency, hematuria, discharge, testicular pain, testicular mass Musculoskeletal: denies: back pain Neurological: denies: headache, weakness ED Past Medical Hx - Past Medical History Hx Hypertension: Yes Hx Heart Attack/AMI: No Hx Congestive Heart Failure: No Hx Diabetes: Yes Additional medical history: Enlarged prostate - Surgical History Hx Coronary Stent: No Hx Pacemaker: No Hx Internal Defibrillator: No - Social History Smoking Status: Never Smoker Substance Use Type: None - Medications Home Medications: Home Medications Medication Instructions Recorded Confirmed Last Taken Type Aspirin EC [Halfprin EC] 81 mg PO QDAY #30 tablet 09/21/16 Unknown Rx Fluticasone [Flonase] 1 spray NS QDAY #1 bottle 09/21/16 Unknown Rx Loratadine (Nf) [Claritin (Nf)] 10 mg PO DAILY #10 tablet 09/21/16 Unknown Rx Nitroglycerin [Nitrostat] 0.4 mg SL Q5M PRN #20 tablet 09/21/16 Unknown Rx Tamsulosin [Flomax] 0.4 mg PO QDAY #30 capsule 09/21/16 Unknown Rx levoFLOXacin [Levaquin] 250 mg PO QDAY #5 tablet 09/21/16 Unknown Rx lisinopriL [Zestril TAB] 10 mg PO QDAY #30 tablet 09/21/16 Unknown Rx traMADoL [Ultram 50 MG tab] 50 mg PO TID PRN #20 tablet 09/21/16 Unknown Rx Ipratropium/Albuter (Nf) 2 puff IH QID #1 inha 02/20/17 Unknown Rx [Combivent (Nf)] levoFLOXacin [Levaquin] 750 mg PO QDAY #7 tablet 02/20/17 Unknown Rx predniSONE [predniSONE 10mg (21 10 mg PO BID #8 tab.ds.pk 02/20/17 Unknown Rx tabs)] ED Physical Exam - General Limitations: Language Barrier General appearance: alert, in no apparent distress - Head Head exam: Present: atraumatic, normocephalic - Eye Eye exam: Present: normal appearance. Absent: conjunctival injection, periorbital swelling, periorbital tenderness - Neck Neck exam: Present: normal inspection - Respiratory Respiratory exam: Present: normal lung sounds bilaterally. Absent: respiratory distress, wheezes, rales, rhonchi, stridor, chest wall tenderness - Cardiovascular Cardiovascular Exam: Present: regular rate, normal heart sounds - GI/Abdominal GI/Abdominal exam: Present: soft. Absent: distended, tenderness, guarding, rebound, rigid, normal bowel sounds - exam: Present: other (Dunne catheter in place with leaking from bag noted). Absent: testicular tenderness, urethral discharge, scrotal swelling - Extremities Exam Extremities exam: Present: normal inspection, normal capillary refill - Back Exam Back exam: Present: normal inspection. Absent: CVA tenderness (R), CVA tenderness (L) - Neurological Exam Neurological exam: Present: alert, oriented X3 - Psychiatric Psychiatric exam: Present: normal affect, normal mood - Skin Skin exam: Present: warm, dry, intact, normal color ED Course Vital Signs 11/15/21 15:08 Temperature 97.5 F L Pulse Rate 71 Respiratory 14 Rate Blood Pressure 123/66 [Right] O2 Sat by Pulse 98 Oximetry - Catheter Insertion (Urinary) Indications: replaced: fell out/removed/no longer functioning Prophylactic Antibiotics Given: No Bladder Scan/US before Catherization: No Estimated Amount of Urine (mls): 20 Preparation: Providone-Iodine Type of Catheter Inserted: 2 way, Dunne, latex Catheter Micronesian Size: 16 Catheter Balloon Size (mls): 10 Topical Anesthesia Used: No Results: successfully catherized-immediate flow (Small amount of urine noted from bag.) Patient Tolerated Procedure: well Complications: none ED Medical Decision Making - Medical Decision Making 86-year-old male presents to the emergency department for evaluation of leaking Dunne catheter. His family member states that patient had a Dunne placed here 1 month ago but has not been able to follow-up with urology. Family was states that patient woke up this morning with leaking from Dunne catheter bag. Patient has not complained of any abdominal pain, dysuria, fever, chills, or any other symptoms. Dunne catheter placed per this provider with leg bag. Only a small amount of urine was noted on return. Dunne catheter was irrigated and saline return with small amount of urine and no bleeding was noted. No abdominal distention noted. After catheter placed, patient got up with family member state that they were ready to go home and were not interested in waiting for UA or to see if more urine came out of catheter. Patient and family members were encouraged to follow-up with urology for further evaluation and management and return to the emergency department for any other problems. They verbalized understanding of and agreement with plan of care. Critical care attestation.: If time is entered above; I have spent that time in minutes in the direct care of this critically ill patient, excluding procedure time. ED Disposition Clinical Impression: Urinary catheter (Dunne) change required Leakage from urinary catheter Qualifiers: Encounter type: initial encounter Qualified Code(s): T83.038A - Leakage of other urinary catheter, initial encounter Disposition: 01 HOME / SELF CARE / HOMELESS Is pt being admited?: No Does the pt Need Aspirin: No Condition: Stable Instructions: Indwelling Urinary Catheter Care, Adult, [id number] Additional Instructions: Catheter was changed in the emergency department today but going for you need to follow-up with urology for management and changing of your Dunne catheter. Referrals: AMALIA PRICE MD [Staff Physician] - 3-5 Days FENG MONTANA MD [Referring] - 3-5 Days Time of Disposition: 17:36
== END 2021-11-15 22:01 | disposition home or self-care (01) ==
LOC: ED 14:54
DX: Z46.6 Encounter for fitting and adjustment of urinary device (principal); T83.038A Leakage of other urinary catheter, initial encounter; I10 Essential (primary) hypertension; E11.9 Type 2 diabetes mellitus without complications
CPT/HCPCS: 51702; 99282